=== PATIENT | female | born 1945 | race Caucasian/White ===

== ENCOUNTER 2024-11-16 08:47 | Emergency (ER) | payer BC, MEDICARE ==
[2024-11-16 08:54] VITALS: RESP 18
--- NOTE | 2024-11-16 09:19 | ED ---
Fall HPI - General Chief Complaint: Fall Stated Complaint: Fall-Wrist/Knee Time Seen by Provider: 11/16/24 09:19 Source: patient, RN notes reviewed Mode of arrival: ambulatory Limitations: no limitations - History of Present Illness Initial Comments: 78-year-old female presented the ER for evaluation of a fall. Patient reports she was walking up her son's steps to his porch yesterday when she accidentally stopped her toe on the top step causing her to fall forward. She attempted to brace her fall with her right wrist but ultimately landed on her left knee and right wrist. She does report swelling to left knee which has subsided since yesterday after icing. She also reporting 10 out of 10 pain to right wrist. Denies any new paresthesias to bilateral upper or lower extremities. She denies head injury, loss of consciousness or blood thinner use. She does take Plavix. Patient also has taken [id number] extra strength Tylenol for pain control. Patient reports abrasions to left elbow and tetanus is up-to-date. No complaints at this time - Related Data Allergies Allergy/AdvReac Type Severity Reaction Status Date / Time No Known Allergies Allergy Verified 11/16/24 08:54 Review of Systems ROS Statement: Those systems with pertinent positive or pertinent negative responses have been documented in the HPI. ROS Other: All systems not noted in ROS Statement are negative. Past Medical History Past Medical History: Diabetes Mellitus, Hypertension History of Any Multi-Drug Resistant Organisms: None Reported Past Surgical History: Heart Catheterization With Stent, Orthopedic Surgery Past Psychological History: No Psychological Hx Reported Smoking Status: Never smoker Past Alcohol Use History: None Reported Past Drug Use History: None Reported General Exam Limitations: no limitations General appearance: alert, in no apparent distress Head exam: Present: atraumatic, normocephalic, normal inspection Neck exam: Present: normal inspection. Absent: tenderness, meningismus, lymphadenopathy Respiratory exam: Present: normal lung sounds bilaterally. Absent: respiratory distress, wheezes, rales, rhonchi, stridor Cardiovascular Exam: Present: regular rate, normal rhythm, normal heart sounds. Absent: systolic murmur, diastolic murmur, rubs, gallop, clicks Extremities exam: Present: full ROM (Extensor mechanism intact bilateral knees.), normal capillary refill (2+ bilateral radial/DP/PT pulses.), other (M ild edema to left knee. There is also edema noted to right distal ulna. No anatomical snuffbox tenderness right.) Neurological exam: Present: alert, oriented X3, CN II-XII intact Skin exam: Present: warm, dry, intact, normal color. Absent: rash Course Vital Signs 11/16/24 11/16/24 11/16/24 08:50 10:18 10:51 Temperature 97.8 F 98.1 F 97.9 F Pulse Rate 105 H 68 70 Respiratory 18 18 18 Rate Blood Pressure 175/79 162/82 162/81 O2 Sat by Pulse 100 98 99 Oximetry Medical Decision Making - Medical Decision Making Was pt. sent in by a medical professional or institution (, PA, GOLD CHARMER, urgent care, hospital, or [place] [facility] facility...) When possible be specific @ -No Did you speak to anyone other than the patient for history (EMS, parent, family, police, friend...)? What history was obtained from this source @ -No Did you review nursing and triage notes (agree or disagree)? Why? @ -I reviewed and agree with nursing and triage notes Were old charts reviewed (outside hosp., previous admission, EMS record, old EKG, old radiological studies, urgent care reports/EKG's, [place] [facility] facility records)? Report findings @ -No old charts were reviewed Differential Diagnosis (chest pain, altered mental status, abdominal pain women, abdominal pain men, vaginal bleeding, weakness, fever, dyspnea, syncope, headache, dizziness, GI bleed, back pain, seizure, CVA, palpatations, mental health, musculoskeletal)? @ -Differential Musculoskeletal: Muscular strain, contusion, ligament sprain, fracture, arthritis, septic arthritis, bursitis, cellulitis, muscle spasm, nerve compression, DVT, arterial occlusion, herpes zoster, electrolyte abnormality, tumor.... This is not meant to be in all inclusive list EKG interpreted by me (3pts min.). @ -None done X-rays interpreted by me (1pt min.). @ -Right hand and wrist x-ray interpreted by me negative for acute fractures or dislocations. Left knee x-ray interpreted me negative for acute fractures or dislocations. Left knee prosthesis in place. CT interpreted by me (1pt min.). @ -None done U/S interpreted by me (1pt. min.). @ -None done What testing was considered but not performed or refused? (CT, X-rays, U/S, labs)? Why? @ -None What meds were considered but not given or refused? Why? @ -P.o. Tylenol patient took prior to arrival. Did you discuss the management of the patient with other professionals (professionals i.e. , PA, GOLD CHARMER, lab, RT, psych nurse, forensic social worker, vocational teacher, teacher, intelligence support officer, embedded case manager)? Give summary @ -No Was smoking cessation discussed for >3mins.? @ -No Was critical care preformed (if so, how long)? @ -No Were there social determinants of health that impacted care today? How? (Homelessness, low income, unemployed, alcoholism, drug addiction, transportation, low edu. Level, literacy, decrease access to med. care, longterm, rehab)? @ -No Was there de-escalation of care discussed even if they declined (Discuss DNR or withdrawal of care, Hospice)? DNR status @ -No What co-morbidities impacted this encounter? (DM, HTN, Smoking, COPD, CAD, Cancer, CVA, ARF, Chemo, Hep., AIDS, mental health diagnosis, sleep apnea, morbid obesity)? @ -None Was patient admitted / discharged? Hospital course, mention meds given and route, prescriptions, significant lab abnormalities, going to OR and other pertinent info. @ -[Discharge. 78-year-old female presented the ER for evaluation of a fall. Vital stable. Upon my evaluation, patient had no signs of acute distress nontoxic-appearing. Patient is neurovascularly intact. Edema noted to left knee with minimal overlying bruising. Patient has full range of motion of bilateral lower extremities extensor make isms intact. There is also edema noted to the right distal ulna. No anatomical snuffbox tenderness right. Imaging completed in the ER negative for acute process. Patient took Tylenol prior to arrival. Patient was placed in an Pietro wrap and educated on conservative measures. Advised her to follow-up closely with orthopedics for further evaluation of left knee injury given history of arthroplasty. Return parameters discussed. Patient discharged stable condition. Patient verbally expressed understanding and agreement with care plan. Case discussed with ED Attending, Dr. Zamora. Undiagnosed new problem with uncertain prognosis? @ -No Drug Therapy requiring intensive monitoring for toxicity (Heparin, Nitro, Insulin, Cardizem)? @ -No Were any procedures done? @ -No Diagnosis/symptom? @ -Fall/wrist sprian Acute, or Chronic, or Acute on Chronic? @ -Acute Uncomplicated (without systemic symptoms) or Complicated (systemic symptoms)? @ -Uncomplicated Side effects of treatment? @ -No Exacerbation, Progression, or Severe Exacerbation? @ -No Poses a threat to life or bodily function? How? (Chest pain, [place], [place], pneumonia, PE, COPD, DKA, ARF, appy, cholecystitis, CVA, Diverticulitis, Homicidal, Suicidal, threat to staff... and all critical care pts) @ -Low - Radiology Data Radiology results: report reviewed, image reviewed Disposition Clinical Impression: Fall, Wrist sprain Disposition: HOME SELF-CARE Condition: Stable Instructions (If sedation given, give patient instructions): Fall Prevention (ED) Additional Instructions: I recommend rest, ice, elevation, and compression. Continue taking Tylenol for pain control. Follow-up with orthopedics and PCP. Return to the ER for any new or worsening concerns Is patient prescribed a controlled substance at d/c from ED?: No Referrals: Nonstaff,Physician [Primary Care Provider] - 1-2 days Santy Mcneil MD [STAFF PHYSICIAN] - 1-2 days Time of Disposition: 10:43
--- NOTE | 2024-11-16 09:56 | XR ---
EXAMINATION TYPE: XR knee complete LT DATE OF EXAM: 11/16/2024 CLINICAL INDICATION: Female, 78 years old with history of fall, pain TECHNIQUE: Frontal, lateral, and oblique views of the knee were obtained. COMPARISON: None. FINDINGS: There is no acute fracture/dislocation evident in left knee. Metallic hardware from total left knee arthroplasty is seen. Hardware Position is satisfactory. Moderate soft tissue swelling ante riorly is noted. IMPRESSION: There is no acute fracture or dislocation in the left knee prosthesis. [facility], , 11/16/2024 9:54 AM
--- NOTE | 2024-11-16 09:58 | XR ---
EXAMINATION TYPE: XR hand complete RT, XR wrist complete RT DATE OF EXAM: 11/16/2024 CLINICAL INDICATION: Female, 78 years old with history of fall, pain TECHNIQUE: Frontal, lateral and oblique images of the right wrist and hand are obtained. COMPARISON: None. FINDINGS: Osseous structures are demineralized. There is no acute fracture/dislocation evident in th e right wrist or hand hand. [id number] narrowing and spurring in the PIP and DIP joints of the fingers. Ptqvktfw-rd-aexapi triscaphe joint degenerative change. Subchondral cystic change in the mary jane ate is present. Mild diffuse subcutaneous edema noted. IMPRESSION: There is no acute fracture or dislocation in the right wrist and hand. [facility], , 11/16/2024 9:56 AM
[2024-11-16 10:52] VITALS: BP 162/81; PULSE 70; TEMP 97.9
== END 2024-11-16 10:52 | disposition home or self-care (01) ==
LOC: EC 08:47
DX: S63.502A Unspecified sprain of left wrist, initial encounter (principal); W19.XXXA Unspecified fall, initial encounter; Y93.01 Activity, walking, marching and hiking
CPT/HCPCS: 99283